=== PATIENT | male | born 1950 | race Caucasian/White ===

== ENCOUNTER 2017-02-05 12:11 | Emergency (ER) | payer MEDICARE ==
[~2017-02-05] VITALS: Ht 175.3 cm; Wt 85.9 kg
[2017-02-05 12:19] VITALS: BP 119/85; PULSE 102; RESP 16; TEMP 97.4; O2SAT 97
[2017-02-05] MEDS ORDERED: CLOP75TA PO (12:32)
[2017-02-05] MEDS ORDERED: LEVO75TA3 PO (12:32)
[2017-02-05] MEDS ORDERED: ASPI81CH CHEW (12:32)
[2017-02-05] MEDS ORDERED: METF500T PO (12:32)
[2017-02-05] MEDS ORDERED: METO25TA3 PO (12:32)
[2017-02-05] MEDS ORDERED: LISI2.5T3 PO (12:32)
[2017-02-05] MEDS ORDERED: OMEGCAP PO (12:32)
[2017-02-05] MEDS ORDERED: DOXY1CAP74 PO (12:32)
--- NOTE | 2017-02-05 12:37 | PD ---
HPI Chief Complaint: Abnormal Results Time Seen by Provider: 12:22 Travel History International Travel<30 days: No Contact w/Intl Traveler<30days: No Traveled to known affect area: No History of Present Illness HPI 66-year-old male presents with elevated glucose at his primary care physician at 460. He was advised to come here for further workup. He states other than being really thirsty he denies any other concurrent complaints. He states that since he's been so thirsty he's been drinking a lot of water, orange juice and grape juice. He states he's had about a quart each of orange juice and grape juice. He states that he just got diagnosed with diabetes a month ago and placed on metformin 2 weeks ago. He thought the thirstiness was coming from his metformin so that is why he went to his primary today to get it adjusted after he did not take it today and yesterday. Quality is elevated. Severity is 400s. PFSH Past Medical History Diabetes: Yes Patient Takes Glucophage: Yes Hypertension: Yes Past Surgical History Cardiac Surgery: Yes (STENTS) Eye Surgery: Yes (LASIK) Social History Alcohol Use: No Tobacco Use: No Substance Use: No Allergies-Medications (Allergen,Severity, Reaction): Coded Allergies: No Known Allergies (Unverified , 02/05/17) Reported Meds & Prescriptions Reported Meds & Active Scripts Active Reported [place]-3 Fish Oil/Vitamin (Fish Oil-Cholecalciferol) 1,000-1,000 Mg Cap 1 Cap PO DAILY Aspirin 81 Mg Chew 81 Mg CHEW DAILY Levothyroxine (Levothyroxine Sodium) 75 Mcg Tab 75 Mcg PO DAILY Clopidogrel (Clopidogrel Bisulfate) 75 Mg Tab 75 Mg PO DAILY Metoprolol Tartrate 25 Mg Tab 25 Mg PO DAILY Doxycycline 40 Mg Cap 20 Mg PO BID Lisinopril 2.5 Mg Tab 2.5 Mg PO DAILY Metformin (Metformin HCl) 500 Mg Tab 500 Mg PO BIDPC With meals Review of Systems Except as stated in HPI: all other systems reviewed are Neg Physical Exam Narrative GENERAL: Well-nourished, well-developed patient. SKIN: Warm and dry. HEAD: Normocephalic and atraumatic. EYES: No injection or drainage. ENT: No nasal drainage noted. NECK: Supple, trachea midline. CARDIOVASCULAR: Regular rate and rhythm RESPIRATORY: Breath sounds equal bilaterally. No accessory muscle use. GASTROINTESTINAL: Abdomen soft, non-tender, nondistended. EXTREMITIES: No edema. NEUROLOGICAL: Awake and alert. Motor and sensory grossly within normal limits. Normal speech. Data Data Last Documented VS Vital Signs Date Time Temp Pulse Resp B/P Pulse Ox O2 Delivery O2 Flow Rate FiO2 02/05/17 13:37 88 20 120/76 98 02/05/17 12:19 97.4 Orders Complete Blood Count With Diff (02/05/17 12:33) Basic Metabolic Panel (Bmp) (02/05/17 12:33) Urinalysis - C+S If Indicated (02/05/17 12:33) Iv Access Insert/Monitor (02/05/17 12:33) Ecg Monitoring (02/05/17 12:33) Oximetry (02/05/17 12:33) Sodium Chlorid 0.9% 500 Ml Inj (Ns 500 M (02/05/17 12:45) Blood Glucose (02/05/17 12:35) Labs Laboratory Tests Test 02/05/17 02/05/17 12:30 13:30 White Blood Count 7.7 TH/MM3 Red Blood Count 4.87 MIL/MM3 Hemoglobin 14.5 GM/DL Hematocrit 41.0 % Mean Corpuscular Volume 84.3 FL Mean Corpuscular Hemoglobin 29.7 PG Mean Corpuscular Hemoglobin 35.3 % Concent Red Cell Distribution Width 11.5 % Platelet Count 310 TH/MM3 Mean Platelet Volume 7.0 FL Neutrophils (%) (Auto) 74.9 % Lymphocytes (%) (Auto) 16.3 % Monocytes (%) (Auto) 7.7 % Eosinophils (%) (Auto) 0.7 % Basophils (%) (Auto) 0.4 % Neutrophils # (Auto) 5.7 TH/MM3 Lymphocytes # (Auto) 1.3 TH/MM3 Monocytes # (Auto) 0.6 TH/MM3 Eosinophils # (Auto) 0.1 TH/MM3 Basophils # (Auto) 0.0 TH/MM3 CBC Comment DIFF FINAL Differential Comment Sodium Level 130 MEQ/L Potassium Level 4.7 MEQ/L Chloride Level 93 MEQ/L Carbon Dioxide Level 21.3 MEQ/L Anion Gap 16 MEQ/L Blood Urea Nitrogen 21 MG/DL Creatinine 1.20 MG/DL Estimat Glomerular Filtration 61 ML/MIN Rate Random Glucose 421 MG/DL Calcium Level 9.3 MG/DL Urine Collection Type CLEAN CATCH Urine Color YELLOW Urine Turbidity CLEAR Urine pH 5.0 Urine Specific [place] GREATER THAN 1.035 Urine Protein NEG mg/dL Urine Glucose (UA) 1000 OR GREATER mg/dL Urine Ketones 80 OR GREATER mg/dL Urine Occult Blood NEG Urine Nitrite NEG Urine Bilirubin NEG Urine Leukocyte Esterase NEG Urine Squamous Epithelial 0-5 /hpf Cells Microscopic Urinalysis Comment CULT NOT INDICATED MDM Medical Decision Making Medical Screen Exam Complete: Yes Emergency Medical Condition: Yes Medical Record Reviewed: Yes (pmh confirmed) Interpretation(s) CBC & BMP Diagram 02/05/17 12:30 Differential Diagnosis Increased sugar intake, renal failure, electrolyte abnormality Narrative Course Will check blood work, urinalysis and dose with IV fluids and reevaluate Lab work shows elevated glucose of 421 with normal bicarbonate, patient has not been taking his metformin and has been drinking orange juice which accounts for this. After fluids glucose is 369. Patient is well-appearing. Counseled at length about diabetic diet and need to take metformin to improve his sugars. We 'll discuss with his primary care physician Patient denies any new complaints and states that they are feeling better. Patient happy with care, all questions answered. Patient knows that follow up is incumbent on them and to return to the emergency room immediately if new or worsening symptoms develop. Patient given strict return precautions, vitals reviewed and are normal, agrees to further workup as an outpatient. I discussed with social work and they will be arranging diabetes education and follow up with home health Physician Communication Physician Communication dr faith states will pass on with primary care team for close follow up Diagnosis Primary Impression: Poorly controlled diabetes mellitus Patient Instructions: General Instructions, Type 2 Diabetes in Adults (DC) Additional Instructions: Take your metformin, avoid orange/fruit juice as this can make your sugars go really high, follow with primary tommorrow, return as needed Med/Other Pt SpecificInfo: No Change to Meds Disposition: 01 DISCHARGE HOME Condition: Stable Rhoda Tam MD Feb 05, 2017 12:37
[2017-02-05 12:39] VITALS: O2SAT 98
[2017-02-05 12:44] LABS: AUTOMATED NEUTROPHIL # 5.7 TH/MM3 (1.8-7.7); BASOPHIL % 0.4 % (0.0-2.0); EOSINOPHIL # 0.1 TH/MM3 (0-0.4); EOSINOPHIL % 0.7 % (0.0-4.0); HEMO FLAGS DIFF FINAL; LYMPH % 16.3 % (9.0-44.0); LYMPHOCYTE # 1.3 TH/MM3 (1.0-4.8); MEAN CELL VOLUME 84.3 FL (80.0-100.0); MEAN CORPUSCULAR HEMOGLOBIN 29.7 PG (27.0-34.0); MEAN CORPUSCULAR HGB CONC 35.3 % (32.0-36.0); MONO % 7.7 % (0.0-8.0); NEUT % 74.9 % (16.0-70.0); PLATELET COUNT 310 TH/MM3 (150-450); RED BLOOD COUNT 4.87 MIL/MM3 (4.50-5.90); RED CELL DISTRIBUTION WIDTH 11.5 % (11.6-17.2); WHITE BLOOD COUNT 7.7 TH/MM3 (4.0-11.0)
[2017-02-05] MEDS ORDERED: SODIUM CHLORID 0.9% 500 ML INJ 500 ML IV ONE (12:45)
[2017-02-05 12:55] LABS: POTASSIUM 4.7 MEQ/L (3.5-5.1)
[2017-02-05 13:06] LABS: BICARBONATE 21.3 MEQ/L (21.0-32.0)
[2017-02-05 13:36] LABS: BLOOD, URINE NEG (NEG); NITRITE,URINE NEG (NEG)
[2017-02-05 13:37] VITALS: BP 120/76; PULSE 88; RESP 20; O2SAT 98
[2017-02-05 13:38] LABS: GLUCOSE,URINE 1000 OR GREATER mg/dL (NEG); KETONE, URINE 80 OR GREATER mg/dL (NEG)
[2017-02-05 13:39] LABS: METHOD OF COLLECTION CLEAN CATCH; URINE COLOR YELLOW (YELLW/STRAW)
[2017-02-05 13:40] LABS: COMMENT (UR) CULT NOT INDICATED; CULTURE IF INDICATED CULT NOT INDICATED; SQUAMOUS EPITHELIAL CELL URINE 0-5 /hpf (0-5)
--- NOTE | 2017-02-05 14:26 | HHI.FF ---
Face to Face Verification Diagnosis: (1) Poorly controlled diabetes mellitus Home Health Nursing Order: Diabetic education Instructions: please review diabetic diet, enforce need for taking medication I have seen patient Karl Varghese on 02/05/17. My clinical findings support the need for the requested home health care services because: Med compliance is questionable I certify that my clinical findings support that this patient is homebound because: Need for psychosocial assistance Rhoda Tam MD Feb 05, 2017 14:26
[2017-02-05 15:14] VITALS: BP 115/59; PULSE 88; O2SAT 96
== END 2017-02-05 15:54 | disposition home or self-care (01) ==
LOC: PHED 12:11
DX: E11.65 Type 2 diabetes mellitus with hyperglycemia (principal); I10 Essential (primary) hypertension; Z95.5 Presence of coronary angioplasty implant and graft
CPT/HCPCS: 80048; 81001; 85025; 96360; 99283; J7040